=== PATIENT | female | born 1965 | race Caucasian/White ===

== ENCOUNTER 2018-09-30 11:04 | Outpatient (CLI) | payer BC, SELFPAY ==
[2018-09-30 13:39] LABS: TSH (W/Ref FT4) 2.71 uIU/mL (0.358-3.74)
== END 2018-09-30 11:24 ==
PROVIDERS: PCP Family Medicine; Visit Provider Nurse Practitioner Family
DX: N95.0 Postmenopausal bleeding (principal)
CPT/HCPCS: 36415; 84443

== ENCOUNTER 2018-10-14 01:01 | Outpatient (CLI) | payer BC, SELFPAY ==
--- NOTE | 2018-10-14 09:50 | DI.US_ITS ---
SYMPTOM/DIAGNOSIS: POSTMENOPAUSAL BLEEDING, N95.0 PELVIC ULTRASOUND: Transabdominal and transvaginal examination was performed. The uterus measures 7.4 cm. long by 4.7 cm. AP by 5.2 cm. transverse. The endometrial stripe is within normal limits at .4 cm. There is a 2.7 by 1.9 by 2.7 hypoechoic mass arising from the posterior aspect of the body of the uterus, most suggestive of a fibroid. The ovaries were visualized and are normal in appearance. The right ovary measures 2.5 by 1.8 by 1.6 cm. The left ovary measures 2.5 by 1.5 by 1.2 cm. No evidence of free pelvic fluid or hydronephrosis is identified. IMPRESSION: Uterine fibroid.
== END 2018-10-14 01:21 ==
PROVIDERS: PCP Family Medicine; Visit Provider Nurse Practitioner Family
DX: N95.0 Postmenopausal bleeding (principal); D25.9 Leiomyoma of uterus, unspecified
CPT/HCPCS: 76830; 76856

== ENCOUNTER 2018-12-16 00:18 | Outpatient (CLI) | payer BC, SELFPAY ==
--- NOTE | 2018-12-16 11:00 | DI.MAMMO_ITS ---
SYMPTOMS/DIAGNOSIS: SCREENING, Z12.31 MAMMOGRAM: Mammograms were interpreted according to the usual protocol including computer analysis with CAD system, tomosynthesis and C view imaging. The breasts are of moderate density with fairly symmetrical distribution of fibroglandular tissue. No dominant mass is identified in either breast. There is a loose grouping of benign-appearing calcifications in the upper inner quadrant of the left breast, unchanged from previous examinations including November 2017. No other significant change is seen in comparison with the previous examinations. CONCLUSION: No specific evidence of malignancy at this time. Routine screening examinations are suggested at yearly intervals in this age group according to the ACS/ACR guidelines. Category 1, breast density category B. SA ASSESSMENT OF FINDINGS: Negative. Category 1. Patient will receive a letter notifying them of these results. BI-RADS category B. There are scattered areas of fibroglandular density.
== END 2018-12-16 00:38 ==
PROVIDERS: PCP Family Medicine; Visit Provider Nurse Practitioner Family
DX: Z12.31 Encounter for screening mammogram for malignant neoplasm of breast (principal); R92.1 Mammographic calcification found on diagnostic imaging of breast
CPT/HCPCS: 77063; 77067

== ENCOUNTER 2020-11-29 11:19 | Outpatient (REF) | payer BC, SELFPAY ==
--- NOTE | 2020-11-29 11:00 | PAPFT_PTH ---
PATIENT: Kandis Kang LOC: [facility] U#:[id number] AGE/SX: 55/F ROOM: RE11/29/[address]: BONY Lund : 1965 BED: DIS: 11/29/2020 SPEC #: [id number] RECD: 11/29/20 13:14 STATUS: MCKINLEY REAyo #: [id number] JOHNATHON: 11/29/20 11:[address]: Ara Love DEPT: COUNTS INCLUDE 234 BEDS AT THE [facility] Cytology RECD BY: Jeanne Man ENTERED: 11/29/20 13:14 SP TYPE: PAPFT EMMA DR: Allison Elam MD Tissues: 1 - CX/ENDOCX FOR PAP SMEARS Procedures: PAP THIN PREP/UVM Screening HPV DNA PROBE Comments: [id number]
== END 2020-11-29 11:20 | disposition home or self-care (01) ==
LOC: LBN 11:19
PROVIDERS: PCP Family Medicine; Visit Provider Nurse Practitioner Family
DX: Z12.4 Encounter for screening for malignant neoplasm of cervix (principal); Z11.51 Encounter for screening for human papillomavirus (HPV)
CPT/HCPCS: 88142; 87624

== ENCOUNTER 2020-12-19 02:19 | Outpatient (CLI) | payer BC, SELFPAY ==
--- NOTE | 2020-12-19 08:15 | DI.MAMMO_ITS ---
Exam(s) MAMMO SCREENING EXAM: MAMMO SCREENING CLINICAL HISTORY: screening,z12.39. TECHNIQUE: Bilateral full field digital CC and MLO mammographic images were obtained with 3D tomosyn thesis and utilizing computer aided detection (CAD). COMPARISON: Prior mammograms dating back to 2011, the most recent being December 2018. FINDINGS: No new significant radiograph findings in left breast. The right breast there is an asymmetric density measuring approximately 7 x 6 millimeters located 4 c m in from the nipple. Spot compression view recommended. No malignant-appearing microcalcification groups evident in either breast. There is no significant architectural distortion nor skin thickening-retraction. IMPRESSION: 1. No radiographic evidence of malignancy in left breast. 2. Asymmetric density-possible nodule right breast as described above. Spot compression 3D MLO views plus possible ultrasound recommended. BI-RADS Category 0 - Assessment Incomplete: Need additional imaging evaluation Breast Density - Category C - Heterogeneously dense Breast density Category C or D implies that the patient has dense breast tissue. Dense breast tissue can make it harder to find cancer on a mammogram. Dense breast tissue is also associated with an incr eased risk of breast cancer. This information about the result of the mammogram report was provided to the patient to raise their awareness. Use this report when you speak with the patient about their risks for breast cancer, which includes their family history. At that time, you may recommend additional screening tests (Ultrasoun d or MRI) as these tests may add significant information. A negative radiographic report should not delay biopsy if a dominant or clinically suspicious mass is present. Up to ten percent of cancers are not identified on mammography. A negative report may reinforce clinical impression. Adenosis and dense breasts may obscure an underlying neoplasm. False positive reports average 6 to 10%. Patient will receive a letter notifying them of these results.
== END 2020-12-19 02:39 ==
PROVIDERS: PCP Family Medicine; Visit Provider Nurse Practitioner Family
DX: Z12.31 Encounter for screening mammogram for malignant neoplasm of breast (principal); R92.8 Other abnormal and inconclusive findings on diagnostic imaging of breast
CPT/HCPCS: 77063; 77067

== ENCOUNTER 2021-01-04 02:41 | Outpatient (CLI) | payer BC, SELFPAY ==
--- NOTE | 2021-01-04 | DI.US_ITS ---
Exam(s) US BREAST RT COMPLETE EXAM: US BREAST RT COMPLETE CLINICAL HISTORY: F/U MAMMO, RT BREAST ASYMMETRIC DENSITY, ? NODULE. TECHNIQUE: Complete ultrasound of the RIGHT breast was performed including all 4 quadrants, the retr oareolar region, and the ipsilateral axilla. COMPARISON: Prior mammograms were reviewed. Today's spot compression view of the right breast was a lso reviewed. FINDINGS: There is no evidence of solid or significant cystic lesions all 4 quadrants of the right breast nor i n the retroareolar region. Scanning of the right axilla is negative for significant adenopathy IMPRESSION: No significant focal ultrasound findings in the right breast. Appropriate follow-up is repeat right breast imaging in 3 months time, this to include repeat right b reast mammogram and right breast ultrasound.. BI-RADS Category 3 - 3 month - Probably Benign Finding: Recommend follow-up mammography and ultrasoun d in 3 months Breast Density - Category B - Scattered areas of fibroglandular density Breast density Category C or D implies that the patient has dense breast tissue. Dense breast tissue can make it harder to find cancer on a mammogram. Dense breast tissue is also associated with an incr eased risk of breast cancer. This information about the result of the mammogram report was provided to the patient to raise their awareness. Use this report when you speak with the patient about their risks for breast cancer, which includes their family history. At that time, you may recommend additional screening tests (Ultrasoun d or MRI) as these tests may add significant information. A negative radiographic report should not delay biopsy if a dominant or clinically suspicious mass is present. Up to ten percent of cancers are not identified on mammography. A negative report may reinforce clinical impression. Adenosis and dense breasts may obscure an underlying neoplasm. False positive reports average 6 to 10%. Patient will receive a letter notifying them of these results.
--- NOTE | 2021-01-04 14:45 | DI.MAMMO_ITS ---
Exam(s) MAMMO SCREEN CALL BACK UNI EXAM: MAMMO SCREEN CALL BACK UNI -RIGHT AND COMPLETE RIGHT BREAST ULTRASOUND CLINICAL HISTORY: F/U MAMMO, RT BREAST ASYMMETRIC DENSITY, ? NODULE. TECHNIQUE: Unilateral spot mammographic images were obtained with 3D tomosynthesis and utilizing com puter aided detection (CAD). . Complete RIGHT breast Ultrasound was also performed, including all 4 quadrants, the retroareolar yasmeen on, and the ipsilateral axilla. COMPARISON: Prior mammograms were reviewed. This additional imaging was performed due to findings described on the recent screening mammogram of 12/20/2019. FINDINGS: Additional mammographic views performed todayare equivocal the presence of a concerning nodule and th erefore we proceeded with ultra sound examination. Ultrasound performed today reveals no evidence of solid or significant cystic lesions in all 4 quadra nts of the right breast nor in the retroareolar region.. Scanning of the ipsilateral axilla was also negative for significant adenopathy. IMPRESSION: Equivocal mammographic findings. Negative complete right breast ultrasound. Appropriate follow-up, as discussed by myself with the patient today, is repeat right breast imaging in 3 months time, this to include both repeat mammogram and repeat ultrasound. The patient was informed of these findings and recommendations by myself prior to leaving the departm ent today. BI-RADS Category 3 - 3 month - Probably Benign Finding: Recommend follow-up mammography in 3 months Breast Density - Category B - Scattered areas of fibroglandular density Breast density Category C or D implies that the patient has dense breast tissue. Dense breast tissue can make it harder to find cancer on a mammogram. Dense breast tissue is also associated with an incr eased risk of breast cancer. This information about the result of the mammogram report was provided to the patient to raise their awareness. Use this report when you speak with the patient about their risks for breast cancer, which includes their family history. At that time, you may recommend additional screening tests (Ultrasoun d or MRI) as these tests may add significant information. A negative radiographic report should not delay biopsy if a dominant or clinically suspicious mass is present. Up to ten percent of cancers are not identified on mammography. A negative report may reinforce clinical impression. Adenosis and dense breasts may obscure an underlying neoplasm. False positive reports average 6 to 10%. Patient will receive a letter notifying them of these results.
== END 2021-01-04 03:01 ==
PROVIDERS: PCP Family Medicine; Visit Provider Nurse Practitioner Family
DX: Z12.31 Encounter for screening mammogram for malignant neoplasm of breast (principal); N64.89 Other specified disorders of breast; R92.8 Other abnormal and inconclusive findings on diagnostic imaging of breast
CPT/HCPCS: 76642; 77063; 77067

== ENCOUNTER 2021-01-13 04:46 | Outpatient (CLI) | payer BC, SELFPAY ==
--- NOTE | 2021-01-13 08:00 | DI.RAD_ITS ---
Exam(s) XR FOOT LT COMPLETE EXAM: XR FOOT LT COMPLETE CLINICAL HISTORY: Dropped dresser on foot,INJURY, PAIN, S99.939Y TECHNIQUE: COMPARISON: No exams were available for comparison FINDINGS: Three views were obtained. There is no evidence of acute fracture or dislocation. Alignment appears within normal limits. No bony or soft tissue abnormality seen. IMPRESSION: RADIATION DOSE DELIVERED: Total DLP
== END 2021-01-13 05:06 ==
PROVIDERS: PCP Family Medicine; Visit Provider Nurse Practitioner Family
DX: S99.922A Unspecified injury of left foot, initial encounter (principal); W20.8XXA Other cause of strike by thrown, projected or falling object, initial encounter
CPT/HCPCS: 73630

== ENCOUNTER 2021-04-12 00:57 | Outpatient (CLI) | payer BC, SELFPAY ==
--- NOTE | 2021-04-12 06:30 | DI.MAMMO_ITS ---
Exam(s) MAMMO DIAGNOSTIC UNI EXAM: MAMMO DIAGNOSTIC UNI-RIGHT CLINICAL HISTORY: 3 month f/u,F/U ABNL MAMMO, R92.8. TECHNIQUE: Unilateral spot mammographic images were obtained with 3D tomosynthesis technique and uti lizing computer aided detection (CAD). COMPARISON: Prior mammograms dating back to 2011, the most recent being December 2020. Ultrasound December 09 was also reviewed FINDINGS: The asymmetric density seen on the right MLO view of 12/19/2020 is less evident on the present study. There are no new right breast masses nor malignant-appearing microcalcification groups. No new architectural distortion or skin thickening-traction IMPRESSION: No radiographic evidence of malignancy in the right breast. Appropriate follow-up is keep this patient on her yearly mammogram schedule, with earlier imaging if a self detected breast changes noted.. The patient was informed of the findings and follow-up recommendations prior to leaving the [facility]. BI-RADS Category 2 - Benign Findings Breast Density - Category B - Scattered areas of fibroglandular density Breast density Category C or D implies that the patient has dense breast tissue. Dense breast tissue can make it harder to find cancer on a mammogram. Dense breast tissue is also associated with an incr eased risk of breast cancer. This information about the result of the mammogram report was provided to the patient to raise their awareness. Use this report when you speak with the patient about their risks for breast cancer, which includes their family history. At that time, you may recommend additional screening tests (Ultrasoun d or MRI) as these tests may add significant information. A negative radiographic report should not delay biopsy if a dominant or clinically suspicious mass is present. Up to ten percent of cancers are not identified on mammography. A negative report may reinforce clinical impression. Adenosis and dense breasts may obscure an underlying neoplasm. False positive reports average 6 to 10%. Patient will receive a letter notifying them of these results.
== END 2021-04-12 01:17 ==
PROVIDERS: PCP Family Medicine; Visit Provider Nurse Practitioner Family
DX: R92.8 Other abnormal and inconclusive findings on diagnostic imaging of breast (principal)
CPT/HCPCS: 77061; 77065; G0279

== ENCOUNTER → 2022-05-15 02:43 | Outpatient (CLI) | payer BC, SELFPAY ==
--- NOTE | 2022-05-15 10:45 | DI.MAMMO_ITS ---
Exam(s) MAMMO SCREENING EXAM: MAMMO SCREENING CLINICAL HISTORY: screening TECHNIQUE: Bilateral full field digital CC and MLO mammographic images were obtained with 3D tomosyn thesis and utilizing computer aided detection (CAD). COMPARISON: Available for comparison. FINDINGS: Masses/Architectural Distortion: None seen. Microcalcifications: No suspicious pleomorphic-type are seen. Skin Thickening/Nipple Retraction: None. IMPRESSION: 1. No significant interval change with no specific features of malignancy noted. 2. Unless there is more urgent need, screening mammography is recommended, as per [employer] guidelines. BI-RADS Category 1 - Negative Breast Density - Category B - Scattered areas of fibroglandular density Breast density category C or D implies that the patient has dense breast tissue. Dense breast tissue is very common and is not abnormal but dense breast tissue can make it harder to find cancer on a ma mmogram. Also, dense breast tissue may increase their breast cancer risk. This information about the result of the mammogram report was provided to the patient to raise their awareness. Use this report when you speak with the patient about their risks for breast cancer, which includes their family hist ory. At that time, you may recommend for more screening tests (Ultrasound or MRI) as they might be us eful based on their risk. A negative radiographic report should not delay biopsy if a dominant or clinically suspicious mass is present. Up to ten percent of cancers are not identified on mammography. A negative report may reinforce clinical impression. Adenosis and dense breasts may obscure an underlying neoplasm. False positive reports average 6 to 10%. Patient will receive a letter notifying them of these results.
== END ==
PROVIDERS: PCP Nurse Practitioner Family; Visit Provider Obstetrics & Gynecology Gynecology
DX: Z12.31 Encounter for screening mammogram for malignant neoplasm of breast (principal)
CPT/HCPCS: 77063; 77067

== ENCOUNTER 2022-07-31 06:09 | Day surgery (SDC) | payer BC, SELFPAY ==
--- NOTE | 2022-07-30 21:11 | HPE_ITS ---
Assessment and Plan Assessment and plan (1) Screening for colorectal cancer: Status: Acute Assessment and plan: Will perform colonoscopy. Risks, benefits reviewed. Given that she has a famiily hx of colon polyps, colonoscopy is recommended. Risks of the procedure were reviewed, including pain, bleeding, infection, missed lesions/sections, incomplete colonoscopy, perforation, injury to surrounding structures, etc. History of Present Illness History of Present Illness Chief Complaint: CRC screening Narrative: This is a 57-year-old female who presents for her first screening for colorectal cancer. She states that she has intermittent constipation, managed with Senna. Otherwise, she denies abdominal pain, weight loss, hematochezia, change in bowel habits, or other abdominal concerns. She has a sister and mother that have had colon polyps. Review of Systems Narrative: A 10-point ROS was reviewed. Pertinent findings above. PFSH All Active Problems Foot injury (Acute) COVID (Acute) Encounter for gynecological examination (Acute) Screening for colorectal cancer (Acute) Medical History Abnormal uterine bleeding (AUB) Menorrhagia-endometrial polyp and endometrial biopsy. Postmenopausal bleeding LMP 12/2016; small amount of light brown bleeding. 09/30/2018 U/S ES 3.7 mm. 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 Sexually active: Yes Current gender identity: female Do you feel safe at home: Yes Do you feel safe in your relationship?: Yes Female Reproductive History Menstrual Menopause type: natural History History 3 Para 3 Hx # Term Pregnancies Multiple births Hx # Pregnancies Ectopic pregnancies AB induced Hx Number of Living Children AB spontaneous Meds Allergies and Home Medications Allergies Allergy/AdvReac Type Severity Reaction Status Date / Time acetaminophen [From Percocet] AdvReac Intermediate Other (See Unverified 07/31/22 06:37 Comment) oxycodone [From Percocet] AdvReac Intermediate Other (See Unverified 07/31/22 06:37 Comment) Home Medications Medication Instructions Recorded Confirmed Type sennosides 8.6 mg capsule (senna) 8.6 mg PO PRN 07/21/21 07/31/22 History ascorbic acid 1,000 1 packet PO DAILY 07/31/22 07/31/22 History xw-kmvtxnxpmvll-fizvcphn powder effervescent pack (Emergen-C) Exam Const General: cooperative, healthy appearing, comfortable and no acute distress Orientation: alert, awake and oriented x3 Resp Effort & Inspection: normal respiratory effort and able to speak in complete sentences Auscultation: clear to auscultation bilaterally Cardio Rate: regular rate Rhythm: regular rhythm Heart Sounds: S1 normal and S2 normal GI Palpation: soft, not firm, no guarding and nontender Auscultation: normal bowel sounds Psych Mental Status: mental status grossly normal Speech and Movement: speech and movement normal Thought Process: normal Thought Content: normal Insight: insight good Judgment: judgment good
--- NOTE | 2022-07-30 21:15 | W.COLOREPORT ---
Date of service: 07/31/22 Time of Service: 09:08 Colonoscopy Report Date of procedure: 07/31/22 Pre-op diagnosis general: Screening for colorectal cancer Post-op diagnosis procedure note: same Procedure: 1. Colonoscopy 2. polypectomy by cold forceps Surgeon: Silvino Doty Anesthesia Type: MAC Estimated blood loss (mL): 4 Pathology: other (cecal polyp) Complications: None Disposition: same day Indications: This is a 57yo female who presents for her first colorecctal cancer screening. Prep: Miralax/Dulcolax Findings: Cecal polyp on the fold of the [place]'s foot Procedure Description: After informed consent was obtained, the patient was taken to the procedure room and placed in a left decubitus position. Monitors were applied and a time out was done. The patient's name, date of , procedure, allergies to medications, and metal in their body were reviewed. The patient was then sedated. Once sedated and comfortable, a digital rectal exam was done. External exam was normal. Internal exam revealed normal sphincter tone, and no palpable masses or gross blood. The colonoscope was then introduced and advanced to the cecum under direct visualization without difficulty. The ileocecal valve was visualized. The prep was excellent.? ?The scope was then slowly withdrawn over 15 minutes in a circumferential manner to the rectum. In doing so, one polyp was encountered.?There was a cecal polyp, on the [place]'s foot, taken by cold forceps. There? was no diverticulosis noted. The mucosa is pink and healthy.? In the rectum, the scope was retroflexed, and no internal hemorrhoids were noted.? The scope was straightened and withdrawn from the anus. The patient tolerated the procedure well, and there were no immediate complications.? The patient was taken to the Day Surgery Unit recovery?area in good condition. Follow up: await pathology; at least every 5 years
--- NOTE | 2022-07-30 21:17 | W.PM.DSUDISC ---
Date of service: 07/31/22 Time of Service: 09:12 Discharge Plan Disposition Patient Disposition: Home Condition: Stable Discharge Details Attending Provider: Silvino Doty Primary Care Provider: Frederick Crandall Home Meds and New Rx's Prescriptions: No Action senna 8.6 mg capsule 8.6 mg PO PRN Emergen-C 1,000 mg Powder Effervescent In Packet 1 packet PO DAILY Discharge Instructions Instructions: Colonoscopy (DC), Colorectal Polyps (DC) Additional Instructions: Await pathology Activity:: Activity as Tolerated Diet:: As Tolerated DS: Diagnosis Discharge Diagnosis (1) Screening for colorectal cancer: Status: Acute Asessment and Plan: 57yo female s/p colonoscopy with cecal polyp. --await pathology --likely colo q5 years
[2022-07-31 06:40] VITALS: BP 112/76; PULSE 69; RESP 16; TEMP 36.7; O2SAT 97
[2022-07-31] MEDS: Lactated Ringers 1,000 ML 80 ML IV (07:00)
--- NOTE | 2022-07-31 07:10 | W.ANESPRE ---
General Info Date of Service Date Performed: 07/31/22 Height: 5 ft 4 in Weight: 60.5 kg Body Mass Index (BMI): 22.8 Surgical Procedure: Operation Date: 07/31/22 07:35 Proposed Procedure Side Surgeon himanshu Doty MD Meds Allergies and Home Medications Allergies Allergy/AdvReac Type Severity Reaction Status Date / Time acetaminophen [From Percocet] AdvReac Intermediate Other (See Unverified 07/31/22 06:37 Comment) oxycodone [From Percocet] AdvReac Intermediate Other (See Unverified 07/31/22 06:37 Comment) Home Medication Medication Instructions Recorded sennosides 8.6 mg capsule (senna) 8.6 mg PO PRN 07/21/21 ascorbic acid 1,000 1 packet PO DAILY 07/31/22 [id number]-[id number]-yvbwiyxd powder effervescent pack (Emergen-C) Current Visit Medications: Current Medications Generic Name Dose Route Start Last Admin Trade Name Freq PRN Reason Stop Dose Admin Ringer's Solution 1,000 mls @ 80 mls/hr 07/31/22 06:00 IV 07/31/22 23:59 INFUSION MORGAN IV Miscellaneous Supplies 1 each 07/31/22 06:00 Iv Access IV 07/31/22 23:59 DIRECTED MORGAN Sodium Chloride 0 ml 07/31/22 06:00 Normal Saline Flush 10 Ml Syr IV 07/31/22 23:59 PRN PRN Sodium Chloride 0 ml 07/31/22 06:00 Normal Saline 10 Ml Vial IJ 07/31/22 23:59 DIRECTED PRN Sterile Water 0 ml 07/31/22 06:00 Water,Injection,Sterile 10 Ml Vial IJ 07/31/22 23:59 DIRECTED PRN PFSH Active Problems Active Problems: Problem Status Onset Code Foot injury S99.929A COVID U07.1 Encounter for gynecological examination Z01.419 Screening for colorectal cancer Z12.11, Z12.12 Medical History Medical History Abnormal uterine bleeding (AUB) Menorrhagia-endometrial polyp and endometrial biopsy. Postmenopausal bleeding LMP 12/2016; small amount of light brown bleeding. 09/30/2018 U/S ES 3.7 mm. No endometrial biopsy performed Surgical History Surgical History (Updated 07/31/22 @ 06:37 by Perla Blanco) Hx of appendectomy age [age] years old Tobacco Smoking/Tobacco Use Status: Former Tobacco Use Alcohol Alcohol Intake: current Alcohol intake frequency: 0-2 drinks per day Alcohol type: beer and wine Substance Use Substance use: Never Substance use type: does not use Prental History History 3 Para 3 Hx # Term Pregnancies Multiple births Hx # Pregnancies Ectopic pregnancies AB induced Hx Number of Living Children AB spontaneous Vital Signs and Lab Results Vital Signs Most Recent Vital Signs in EMR: Most Recent Vital Signs Temp Pulse Resp BP Pulse Ox 36.7 C 69 16 112/76 97 07/31/22 06:40 07/31/22 06:40 07/31/22 06:40 07/31/22 06:40 07/31/22 06:40 Lab Results Blood Type / Crossmatch: No Data to Display Complete Blood Count: No Data to Display Complete Metabolic Panel: No Data to Display Liver Function Panel: No Data to Display Coagulation Panel: No Data to Display Cardiac Panel: No Data to Display Arterial Blood Gas: No Data to Display Venous Blood Gas: No Data to Display Pancreas Panel: No Data to Display Thyroid Panel: No Data to Display Infectious Disease: No Data to Display Blood Cultures: No Data to Display Toxicology Panel: No Data to Display Anesthesia Assessment and Plan Anesthesia History Personal History: No History of Anesthesia Complications Family History: No Family History of Anesthesia Complications Exercise Tolerance Exercise Tolerance: Metabolic Equivalents>4 Pertinent Negatives Pertinent Negatives: No Symptoms of GERD, No Major Cardiovascular Symptoms or Complaints and No Major Pulmonary Symptoms or Complaints Cardiac & Pulmonary Exam Cardiac Exam: Normal S1/S2 Heart Sounds Pulmonary Exam: Clear Bilateral Breath Sounds Implantable Cardiac Device Does patient have a Pacemaker or an ICD?: No Airway Exam Known Difficult Airway: No Mallampati Class: 2 Mouth Opening: Narrow (< 3cm) Thyromental Distance: Greater than 3 cm Neck Range of Motion: Full ROM Neck Circumference: Normal Teeth Condition: Normal Dentition ASA Classification ASA Score: ASA 2 Emergency Case?: No NPO Status NPO Status: NPO Clears >2 hours, Solids >8 hours Anesthesia Plan Resuscitation Status: Full Code Anesthesia Technique: General Anesthesia Airway Planned: Natural Airway Monitors Used: Standard Monitors
[2022-07-31 07:11] VITALS: BMI 22.8
--- NOTE | 2022-07-31 08:29 | BOWEL_PTH ---
PATIENT: Kandis Kang LOC: [facility] U#:[id number] AGE/SX: 57/F ROOM: RE07/31/[address]: Silvino Doty : 1965 BED: DIS: 07/31/2022 SPEC #: [id number] RECD: 07/31/22 12:35 STATUS: MCKINLEY REAyo #: [id number] JOHNATHON: 07/31/22 08:[address]: Silvino Doty DEPT: Surgical Specimen RECD BY: Jeanne Man ENTERED: 07/31/22 12:35 SP TYPE: Bowel OTHR DR: Frederick Crandall, MOLDED CANDLES [employer]ER Tissues: 1 - BIOPSY BOWEL Procedures: GROSS AND MICRO LEVEL 4 Comments: [id number]
[2022-07-31 08:57] VITALS: BP 115/78; PULSE 69; RESP 16; TEMP 36.5; O2SAT 98
[2022-07-31 09:20] VITALS: BP 111/85; PULSE 66; RESP 16; TEMP 36.6; O2SAT 98
--- NOTE | 2022-07-31 10:15 | W.ANESPOSTOP ---
Postoperative Evaluation Date, Time and Location Date Performed: 07/31/22 Time Performed: 10:16 Patient Location: Day Surgery Unit Vital Signs Most Recent Imported Vital Signs: Most Recent Vital Signs Temp Pulse Resp BP Pulse Ox 36.6 C 66 16 111/85 98 07/31/22 09:20 07/31/22 09:20 07/31/22 09:20 07/31/22 09:20 07/31/22 09:20 Pain Score Most Recent Pain Score: Most Recent Pain Score Pain Level 0 07/31/22 09:20 Assessment Mental Status: Awake (Alert & Oriented to Patient Baseline) Airway and Respiratory Function: Patent airway with normal (patient baseline) respiratory exam Cardiovascular Function: Hemodynamically Stable Hydration Status: Adequately Hydrated Nausea & Vomiting: No Nausea or Vomiting Pain: Pt. Denies Any Pain Peripheral Nerve Block: Patient did not receive a nerve block
== END 2022-07-31 10:25 | disposition home or self-care (01) ==
PROVIDERS: PCP Nurse Practitioner Family; Visit Provider Surgery
PROC: 0DJD8ZZ Inspection of Lower Intestinal Tract, Via Natural or Artificial Opening Endoscopic (ICD-10-PCS; CPT 45378; principal; 2022-07-31 07:30)
DX: Z12.11 Encounter for screening for malignant neoplasm of colon (principal); K63.5 Polyp of colon; Z83.71 Family history of colonic polyps
CPT/HCPCS: 45380; 88305; J2704

== ENCOUNTER 2025-04-14 15:02 | Outpatient (REF) | payer BC, SELFPAY ==
--- NOTE | 2025-04-14 13:10 | PAPFT_PTH ---
PATIENT: Kandis Kang LOC: [facility] U#:[id number] AGE/SX: 59/F ROOM: RE04/14/[address]: Jamee Robbins NP : 1965 BED: DIS: 04/14/2025 SPEC #: [id number] RECD: 04/14/25 18:00 STATUS: MCKINLEY ADDY #: [id number] JOHNATHON: 04/14/25 13:[address]: Jamee Robbins NP DEPT: [facility] Cytology RECD BY: Jeanne Man ENTERED: 04/14/25 18:00 SP TYPE: PAPFT OTHR DR: rFederick Crandall NP Tissues: 1 - CX/ENDOCX FOR PAP SMEARS Procedures: PAP THIN PREP/UVM Screening HPV DNA PROBE Comments: [id number] (HPV 16 & 18/45)
== END 2025-04-14 15:03 | disposition home or self-care (01) ==
LOC: LBN 15:02
PROVIDERS: PCP Nurse Practitioner Family; Visit Provider Nurse Practitioner Women's Health
DX: Z12.4 Encounter for screening for malignant neoplasm of cervix (principal)
CPT/HCPCS: 88142; 87624

== ENCOUNTER → 2025-05-03 02:15 | Outpatient (CLI) | payer BC, SELFPAY ==
--- NOTE | 2025-05-03 07:45 | DI.MAMMO_ITS ---
Exam(s) MAMMO SCREENING EXAM: MAMMO SCREENING CLINICAL HISTORY: screening,z12.39 TECHNIQUE: Bilateral full field digital CC and MLO mammographic images were obtained with 3D tomosynthesis and utilizing computer aided detection (CAD). COMPARISON: Comparison is made with prior examinations. FINDINGS: Masses/Architectural Distortion: No suspicious masses or areas of architectural distortion are present. Microcalcifications: No suspicious pleomorphic-type are seen. Skin Thickening/Nipple Retraction: None. IMPRESSION: 1. No significant interval change with no specific features of malignancy noted. 2. Unless there is more urgent need, screening mammography is recommended, as per [employer] [employer] guidelines. BI-RADS Category 1 - Negative Breast Density - Category B - There are scattered areas of fibroglandular density. Breast density Category C or D implies that the patient has dense breast tissue. Dense breast tissue can make it harder to find cancer on a mammogram. Dense breast tissue is also associated with an increased risk of breast cancer. This information about the result of the mammogram report was provided to the patient to raise their awareness. Use this report when you speak with the patient about their risks for breast cancer, which includes their family history. At that time, you may recommend additional screening tests (Ultrasound or MRI) as these tests may add significant information. A negative radiographic report should not delay biopsy if a dominant or clinically suspicious mass is present. Up to ten percent of cancers are not identified on mammography. A negative report may reinforce clinical impression. Adenosis and dense breasts may obscure an underlying neoplasm. False positive reports average 6 to 10%. Patient will receive a letter notifying them of these results.
== END ==
LOC: DI 02:15
PROVIDERS: PCP Nurse Practitioner Family; Visit Provider Nurse Practitioner Women's Health
DX: Z12.31 Encounter for screening mammogram for malignant neoplasm of breast (principal)
CPT/HCPCS: 77063; 77067